=== PATIENT | female | born 1955 | race Caucasian/White ===

== ENCOUNTER 2016-12-24 11:54 | Emergency (ER) | payer OTHER ==
[~2016-12-24] VITALS: Ht 154.9 cm; Wt 90.7 kg
[~2016-12-24 11:54] MED LIST: ALDACTONE25 MG PO; AMBIEN 10 MG TA10 MG PO; APAP500 PO; ASPIR 8181 MG PO; ASPIRIN EC81 M1 PO; BENADRYL25 MG PO; BENICAR20 MG PO; DOXYCYCLINE 10100 M1 PO; ESTRACE0.5 MG PO; GLUMETZA500 PO; IBUPROFEN 800800 M1 PO; IRON325 PO; LASIX 20 MG TAB20 MG PO; LIPITOR20 MG PO; LISINOPRIL40 MG PO; LOPRESSOR 50 MG50 M1 PO; LOPRESSOR50 MG PO; PROTONIX40 M4 PO; PROZAC40 MG PO
[2016-12-24] MEDS ORDERED: IBUPROFEN 600600 M1 PO (13:10)
[2016-12-24] MEDS ORDERED: NORCO 5-325 TA1 EACH PO (13:10)
[2016-12-24 13:39] VITALS: BP 144/68
== END 2016-12-24 13:44 | disposition home or self-care (01) ==
LOC: ER 11:54
DX: S60.022A Contusion of left index finger without damage to nail, initial encounter (principal); E11.9 Type 2 diabetes mellitus without complications; I10 Essential (primary) hypertension; F32.9 Major depressive disorder, single episode, unspecified; F41.9 Anxiety disorder, unspecified; Z91.041 Radiographic dye allergy status; W23.0XXA Caught, crushed, jammed, or pinched between moving objects, initial encounter; Y93.89 Activity, other specified; Y92.89 Other specified places as the place of occurrence of the external cause; Y99.8 Other external cause status

== ENCOUNTER → 2017-05-20 | Outpatient (CLI) | payer OTHER ==
[~2017-05-20] MED LIST changes: +IBUPROFEN 600600 M1 PO; +NORCO 5-325 TA1 EACH PO
== END ==
LOC: RAD 02:08
DX: Z12.31 Encounter for screening mammogram for malignant neoplasm of breast (principal)

== ENCOUNTER → 2017-08-05 | Outpatient (CLI) | payer OTHER | LOC: RAD 08:54 | DX: R05 Cough (principal); R06.02 Shortness of breath ==

== ENCOUNTER → 2018-07-01 | Outpatient (CLI) | payer OTHER | LOC: RAD 08:26 | DX: Z12.31 Encounter for screening mammogram for malignant neoplasm of breast (principal) ==

== ENCOUNTER → 2018-09-12 | Outpatient (CLI) | payer OTHER ==
[~2018-09-12] VITALS: Ht 154.9 cm; Wt 88.5 kg
[~2018-09-12] MED LIST changes: +AVAPRO300 MG PO; +DICLOFENAC SOD100 GM TOP; +JARDIANCE10 MG PO; +SPIRONOLACTONE25 M1 PO; +VITAMIN D2000 UNIT PO; +XANAX 0.25 MG0.25 MG PO
--- NOTE | ~2018-09-12 | P ---
[facility] [place] [address] PROCEDURE REPORT Name: ROLAND SEO Room #: REG [facility].#: [id number] Admission: 09/12/18 ������������������ Attend Phys: Bolivar Mars Discharge: ������������������ Date of : 51 Report #: [id number] THIS REPORT FOR: //name// CC: Bolivar Vazquez MD DATE OF SERVICE: 09/12/2018 PROCEDURE PERFORMED: Colonoscopy with biopsies. HISTORY OF PRESENT ILLNESS: The patient is a 63-year-old female with a history of colon polyps. Last colonoscopy was approximately 5 years ago. She has a previous history of anal fissure as well as perirectal abscess that was drained approximately 4 years ago. She denies any bleeding. She does report some anal pain at times. No family history of colon cancer. Bowel movements have been fairly normal. DESCRIPTION OF PROCEDURE: The risks and benefits of the procedure were explained to the patient, those risks including but not limited to bleeding, perforation and the risk of sedation. She understood these risks and gave informed consent. Sedation was given using propofol per Anesthesia. Next, a digital rectal exam was initially performed, which was normal. Next, using a standard Olympus colonoscope, the scope was placed in the patient's anus and advanced under direct vision to the cecum. The overall prep was excellent. The cecum and ileocecal valve were normal in appearance. Ascending and transverse colon were normal. In the descending colon, a 4 mm sessile polyp was noted and this was removed with cold forceps, otherwise normal. A few small scattered diverticula were noted in the sigmoid colon, no evidence of inflammation, otherwise normal. The rectal mucosa was normal. On retroflexion, small nonbleeding internal hemorrhoids were noted. Close examination of the anal canal showed a chronic appearing anal fissure. No evidence of bleeding. The scope was then withdrawn and the procedure terminated. The patient tolerated the procedure well. IMPRESSION: 1. Small colonic polyp. 2. Sigmoid diverticulosis. 3. Small internal hemorrhoids. 4. Anal fissure, appears chronic. 5. Otherwise, normal colonoscopy. RECOMMENDATIONS: 1. Await biopsy results. 2. Recommend high fiber diet and prescription for Analpram will be given today to be used b.i.d. for the next 2 weeks and then on a p.r.n. basis. [address] [address] PROCEDURE REPORT Name: ROLAND SEO LUIS FELIPE Room #: REG [facility] Abbasi#: [id number] Admission: 09/12/18 ������������������ Attend Phys: Bolivar Mars Discharge: ������������������ Date of : 51 Report #: [id number] 3. If polyp is hyperplastic, repeat in 10 years; if adenomatous polyp, repeat in 5 years. Thank you for allowing me to participate in her care. ��������������������������������������������� ���������������������������������������� By: ��������������������������������������������� [id number] Bolivar Irvin MD /dipika
--- NOTE | 2018-09-15 17:06 | PATH ---
[facility] [address] [place] [address] PATHOLOGY RPT PROCEDURE Name: ROLAND BRYSON Room #: REG [facility] M.R.#: [id number] ������������������ Admission: 09/12/18 ������������������ Date of : 51 Discharge: Report #: [id number] Path Case #: [id number] [facility] Accession Number: [id number] . 01 Material submitted: . colon - BX POLYP AT DESCENDING COLON BF-C. Modifiers: descending . 01 Clinical history: . Pre-OP DX: Hx polyps Post-OP DX: Colon polyp, diverticulosis, hemorrhoids, anal fissure . 02 Diagnosis: Polyp, at descending colon, endoscopic biopsy: - Tubular adenoma. - Negative for high-grade dysplasia. 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 02 Electronically signed: . Marlen Piper MD, Pathologist NPI- [id number] . 01 Gross description: . Received in formalin labeled "Roland Bryson, BX polyp at descending colon," are 2 segments of long soft tissue measuring 0.8 x 0.3 x 0.2 cm in aggregate dimensions and ranging from 0.3 to 0.5 cm in maximum dimension. The specimen is submitted entirely in cassette A1. (TSD; 09/12/2018) TOB/TOB . 02 Pathologist provided ICD-10: D12.4 . 02 CPT . 225000 Specimen Comment: A courtesy copy of this report has been sent to Specimen Comment: [phone], . Specimen Comment: Report sent to / DR DEE Performed at: [address], [place] [id number] MD Greg Gallo MD Phone: [phone] Performed at: [address] [id number] MD Marlen Piper MD Phone: [phone]
== END | disposition home or self-care (01) ==
LOC: GI 07:03
DX: Z12.11 Encounter for screening for malignant neoplasm of colon (principal); Z86.010 Personal history of colon polyps; D12.4 Benign neoplasm of descending colon; K60.2 Anal fissure, unspecified; K57.30 Diverticulosis of large intestine without perforation or abscess without bleeding; K64.8 Other hemorrhoids; I10 Essential (primary) hypertension; E11.9 Type 2 diabetes mellitus without complications; K21.9 Gastro-esophageal reflux disease without esophagitis; E78.5 Hyperlipidemia, unspecified; F32.9 Major depressive disorder, single episode, unspecified; F41.9 Anxiety disorder, unspecified; G47.33 Obstructive sleep apnea (adult) (pediatric); D64.9 Anemia, unspecified; Z98.890 Other specified postprocedural states; Z87.891 Personal history of nicotine dependence; Z90.710 Acquired absence of both cervix and uterus; Z79.899 Other long term (current) drug therapy; Z91.041 Radiographic dye allergy status; Z88.8 Allergy status to other drugs, medicaments and biological substances; Z79.82 Long term (current) use of aspirin
CPT/HCPCS: 62110; 62900

== ENCOUNTER → 2019-11-19 | Outpatient (CLI) | payer OTHER | LOC: CAT 09:54 → SJCVC 09:54 | PROVIDERS: ATTEND Internal Medicine Cardiovascular Disease | DX: I11.0 Hypertensive heart disease with heart failure (principal); I50.32 Chronic diastolic (congestive) heart failure; I25.10 Atherosclerotic heart disease of native coronary artery without angina pectoris; E78.00 Pure hypercholesterolemia, unspecified; E11.9 Type 2 diabetes mellitus without complications; E78.1 Pure hyperglyceridemia; Z79.899 Other long term (current) drug therapy; Z87.891 Personal history of nicotine dependence ==

== ENCOUNTER → 2020-03-16 | Outpatient (CLI) | payer OTHER ==
[~2020-03-16] MED LIST changes: -LISINOPRIL40 MG PO; +ZESTRIL20 MG PO
[2020-03-16 15:05] VITALS: BP 119/41
[2020-03-16 16:00] VITALS: BP 12/41
--- NOTE | 2020-03-16 18:14 | NUR ---
HERE FOR 1ST OF 5 VENOFER INFUSIONS. REPORTS RECENT FATIGUE. HAS HAD IRON INFUISONS IN THE PAST WHICH SHE STATES REALLY MADE HER FEEL BETTER. REVIEWED PLAN, ROLE OF IRON, SCHEDULE. PT TOLERATED INFUSION WITHOUT INCIDENT, NO S/S REACTION. VSS. DISMISSED IN STABLE CONDITION. SCHEDULED TO RETURN AGAIN NEXT WEEK ON SATURDAY SINCE NO OPENINGS AVAILABLE IN THE CLINIC THE REST OF THIS WEEK. PT AGREEABLE.
== END ==
LOC: OPONC 12:34
PROVIDERS: ATTEND Family Medicine
DX: D50.8 Other iron deficiency anemias (principal)
CPT/HCPCS: 95000

== ENCOUNTER → 2020-03-21 | Outpatient (CLI) | payer OTHER ==
[2020-03-21 11:00] VITALS: BP 105/44
[2020-03-21 11:15] VITALS: BP 97/49
[2020-03-21 11:40] VITALS: BP 106/38
--- NOTE | 2020-03-21 11:50 | NUR ---
HERE FOR 2ND OF 5 VENOFER INFUSIONS. REPORTS TOLERATING THE 1ST ONE WITHOUT ANY NOTED SIDE EFFECTS. TOLERATED TODAY'S WITHOUT INCIDENT. DID REPORT FEELING ODD ABOUT 10 MIN INTO THE INFUSION, SLOWED INFUSION FOR ABOUT 10 MIN, PT QUICKLY STATED THAT THE FEELING PASSED (ALMOST IMMEDIATELY) AND FELT TOTALLY FINE THE REMAINDER OF THE TIME. STATES SHE THOUGHT IT COULD HAVE BEEN D/T THINKING ABOUT HER JOB WHICH CAUSES HER STRESS. TOTAL INFUSION TIME WAS 40 MIN. VSS THROUGHOUT. PT DISMISSED IN STABLE CONDITION. SCHEDULED TO RETURN AGAIN ON SATURDAY.
== END ==
LOC: OPONC 10:37
PROVIDERS: ATTEND Family Medicine
DX: D50.8 Other iron deficiency anemias (principal)
CPT/HCPCS: 95000

== ENCOUNTER → 2020-03-24 | Outpatient (CLI) | payer OTHER ==
[2020-03-24 12:50] VITALS: BP 110/31
[2020-03-24 14:15] VITALS: BP 115/36
--- NOTE | 2020-03-24 14:40 | NUR ---
IN FOR #3 OF 5 VENOFER INFUSIONS FOR IRON DEF. ANEMIA. STATED FEELING WELL TODAY. TOLERATED INFUSION WITHOUT INCIDENT. INFUSED VENOFER OVER 45 MINUTES AND PATIENT DID NOT HAVE ANY "FEELING FUNNY EPISODES". POST BLOOD PRESSURE GOOD. TO RETURN NEXT SATURDAY FOR 4TH INFUSION. DISMISSED IN GOOD CONDITION.
== END ==
LOC: OPONC 12:49
PROVIDERS: ATTEND Family Medicine
DX: D50.8 Other iron deficiency anemias (principal)
CPT/HCPCS: 95000

== ENCOUNTER → 2020-03-30 | Outpatient (CLI) | payer OTHER ==
[2020-03-30 13:15] VITALS: BP 101/56
[2020-03-30 13:45] VITALS: BP 101/54
--- NOTE | 2020-03-30 13:50 | NUR ---
HERE FOR #4 DOSE MARYLINOFER. REPORTS DOING WELL, TOLERATING INFUSIONS WELL. HAD SOME DIARRHEA POST 2ND DOSE BUT NOT 1ST OR 3RD SO FEELS IT MAY HAVE BEEN R/T SOMETHING SHE ATE. TOLERATED TODAY'S INFUSION WITHOUT INCIDENT. VSS. DISMISSED IN STABLE CONDITION. SCHEDULED TO RETURN AGAIN NEXT WEEK FOR FINAL DOSE.
== END ==
LOC: OPONC 12:32
PROVIDERS: ATTEND Family Medicine
DX: D50.8 Other iron deficiency anemias (principal)
CPT/HCPCS: 95000

== ENCOUNTER → 2020-04-05 | Outpatient (CLI) | payer OTHER | LOC: RAD 09:48 | PROVIDERS: ATTEND Family Medicine | DX: Z12.31 Encounter for screening mammogram for malignant neoplasm of breast (principal); N64.89 Other specified disorders of breast ==

== ENCOUNTER → 2020-04-06 | Outpatient (CLI) | payer OTHER ==
[2020-04-06 12:00] VITALS: BP 139/61
[2020-04-06 12:40] VITALS: BP 122/39
== END ==
LOC: OPONC 04-01 12:51
PROVIDERS: ATTEND Family Medicine
DX: D50.8 Other iron deficiency anemias (principal)
CPT/HCPCS: 95000

== ENCOUNTER → 2021-01-30 | Outpatient (CLI) | payer OTHER | LOC: SJCVC 13:20 | PROVIDERS: ATTEND Internal Medicine Cardiovascular Disease | DX: I25.10 Atherosclerotic heart disease of native coronary artery without angina pectoris (principal); E78.00 Pure hypercholesterolemia, unspecified; I10 Essential (primary) hypertension; E11.9 Type 2 diabetes mellitus without complications; G47.33 Obstructive sleep apnea (adult) (pediatric); F41.9 Anxiety disorder, unspecified; Z79.899 Other long term (current) drug therapy; Z87.891 Personal history of nicotine dependence; Z72.89 Other problems related to lifestyle; Z79.82 Long term (current) use of aspirin; Z88.8 Allergy status to other drugs, medicaments and biological substances ==

== ENCOUNTER → 2021-03-29 | Outpatient (CLI) | payer OTHER | LOC: SJCVCIMAG 08:11 | PROVIDERS: ATTEND Internal Medicine Cardiovascular Disease | DX: I25.10 Atherosclerotic heart disease of native coronary artery without angina pectoris (principal); R93.1 Abnormal findings on diagnostic imaging of heart and coronary circulation; E78.5 Hyperlipidemia, unspecified; R06.00 Dyspnea, unspecified ==

== ENCOUNTER → 2021-07-03 | Outpatient (CLI) | payer OTHER | LOC: BC 10:05 | PROVIDERS: ATTEND Family Medicine | DX: Z12.31 Encounter for screening mammogram for malignant neoplasm of breast (principal) ==